=== PATIENT | male | born 1985 | race Caucasian/White ===

== ENCOUNTER 2016-08-15 19:58 | Emergency (ER) | payer MEDICAID, OTHER ==
--- NOTE | 2016-08-15 20:18 | EDPHY ---
H & P Stated Complaint: ps, opiate/benzo abuse HPI/ROS: CHIEF COMPLAINT: Auditory hallucination, drug abuse HISTORY OF PRESENT ILLNESS: The patient is a 30 y/o male arriving with his friend complaining of auditory hallucinations of unclear onset. He states, "highs and lows and voices I've been hearing" and says this is a "psychosis I' ve never endured;" "I just think everybody's talking about me and out to get me. " He has a history of anxiety, depression, and IV drug abuse and reports he last used heroin and methamphetamine today. He also goes to a methadone clinic and has prescriptions for Klonopin, Ativan, and Adderall that he has already used up for the month. He reports he's been here before for hallucinations. He denies cough or cold, but "gets fevers sometimes with the abscesses." He came in today voluntarily due to "overwhelming stress" and wants to seek treatment for opiate abuse. REVIEW OF SYSTEMS: A ten point review of systems was performed and is negative with the exception of the items mentioned in the HPI. Source: Patient - Personal History Current Tetanus/Diphtheria Vaccine: Unsure Current Tetanus Diphtheria and Acellular Pertussis (TDAP): Unsure - Medical/Surgical History PMH: PMH includes: 1. Anxiety 2. Depression 3. Polysubstance abuse including opiates, benzodiazepines, and methamphetamine. Currently uses methadone as well. Reviewed prior medical records including multiple admissions for detox and behavioral health admission 12/14/11. Hx Asthma: No Hx Chronic Respiratory Disease: No Hx Diabetes: No Hx Cardiac Disease: No Hx Renal Disease: No Hx Cirrhosis: No Hx Alcoholism: No Other PMH: Polysubstance abuse. Anxiety. Shoulder surgery - Social History Smoking Status: Never smoked Alcohol Use: Occasionally Drug Use: Heroin Additional Social History: Not employed, no cigarette use, polysubstance and IV drug abuse. Friend at bedside. PCP in [place] - Physical Exam Exam: General Appearance: Alert. Vital signs reviewed and normal. Eyes: Pupils equal and round, no conjunctival injection, no discharge. Anicteric. ENT, Mouth: Mucous membranes are moist, no oropharyngeal erythema or edema. Poor dentition. Neck: No lymphadenopathy, supple. Respiratory: Lungs are clear to auscultation; no wheezes, rales, or rhonchi. Cardiovascular: Regular rate and rhythm; no murmur, rub, or gallop. Gastrointestinal: Abdomen is soft and nontender, no masses or organomegaly, bowel sounds normal. Skin: Warm and dry. Multiple bruises and track reyes on both arms. No palpable fluctuance or abscesses. Back: Nontender to palpation over the thoracolumbar spine. No CVAT. Neurological: Alert and oriented. Moving all four extremities easily and equally. Psychiatric: Normal affect. Constitutional: Initial Vital Signs Temperature (C) 36.8 C 08/15/16 20:04 Heart Rate 83 08/15/16 20:04 Respiratory Rate 16 08/15/16 20:04 Blood Pressure 105/79 08/15/16 20:04 O2 Sat (%) 96 08/15/16 20:04 O2 Delivery Mode Room Air O2 (L/minute) 95 Allergies/Adverse Reactions: No Known Allergies Allergy (Unverified 08/15/16 20:03) Home Medications: Medication Instructions Recorded Ativan 08/15/16 Klonopin 08/15/16 Methadone HCl 08/15/16 Medical Decision Making ED Course/Re-evaluation: Patient arrives here voluntarily for substance abuse treatment. Standard psychiatric labs drawn. I suspect that his report of hearing voices is related to his substance abuse and not primary psychiatric problem. I have reviewed previous records that are available to me. He has been admitted to this hospital 4 times for treatment of opiate dependence. He is currently enrolled in a methadone program in [place], but is not compliant and continues with IVDA. He has tried suboxone in the past. He requests help with detox, but because he is addicted to both opiates and benzodiazepines, local options are limited. He is not able to detox at the [facility]. He was observed in the ED for five hours. Labs not concerning. UDS positive only for benzos (he reports meth and heroin use today). I have spoken with mental health supervisor aircraft cleaning, psychiatrist power generation plant operator, hospitalist on duty and am unable to arrange inpatient detox for him. He lives in [place] and the friend that accompanied him has returned to [place] on the bus. When I informed the patient that I am unable to arrange inpatient detox he was resigned and cooperative. He states that he will take a bus back to [place] and present to [facility] where some help is likely available. He is clearly aware of the services available to him in [place]. He is not suicidal or homicidal. At the time of his discharge he is no longer reported auditory hallucinations. I do not think that he needs psychiatric evaluation. No signs of active withdrawal. No evidence of abscess at injection sites. Although I had hoped to be able to provide some form of assistance to him for help with his obviously serious addiction, I have been unable to do so. Differential Diagnosis: I considered a ddx of polysubstance abuse with resultant psychosis, depression, anxiety, psychosis, nayely, suicidality, homicidality, and seeking secondary gain (place to sleep). - Data Points Laboratory Results: Laboratory Results 08/15/16 21:15 08/15/16 21:45 Departure - Departure Disposition: Home, Routine, Self-Care Clinical Impression: Polysubstance abuse Condition: Good Instructions: Polysubstance Abuse (ED) Additional Instructions: As you know, we do not have the capability of helping you with your withdrawal. I recommend that you return to [place] and get in touch with [facility]. Referrals: [facility] [Outside] - As per Instructions Report Scribed for: Stephanie Aquino Report Scribed by: Ana Bennett Date of Report: 08/15/16 Time of Report: 20:32 Physician Review and Approval Statement: 08/15/16 20:18 Portions of this note were transcribed by the medical appointment scheduler. I, Dr. Stephanie Aquino, personally performed the history, physical exam, and medical decision- making; and confirmed the accuracy of the information in the transcribed note.
[2016-08-15 21:45] LABS: % IMMATURE GRANULYOCYTES 0.2 % (0.0-1.1); ABSOLUTE IMMATURE GRANULOCYTES 0.02 10^3/uL (0.00-0.10); ADD DIFF? NO; ADD MORPH? NO; ADD SCAN? NO; ATYPICAL LYMPHOCYTE FLAG 0 (0-99); FRAGMENT RBC FLAG 0 (0-99); HEMATOCRIT 52.4 % (40.0-51.0); HEMOGLOBIN 16.9 g/dL (13.7-17.5); LEFT SHIFT FLG 0 (0-99); LIPEMIA HEMOLYSIS FLAG 80 (0-99); MEAN CELL HEMOGLOBIN 27.4 pg (27.9-34.1); MEAN CELL HEMOGLOBIN CONCENTR. 32.3 g/dL (32.4-36.7); MEAN CELL VOLUME 85.1 fL (81.5-99.8); MEAN PLATELET VOLUME 11.7 fL (8.7-11.7); PLATELET CLUMPS FLAG 80 (0-99); PLATELET COUNT 178 10^3/uL (150-400); RED BLOOD CELL COUNT 6.16 10^6/uL (4.40-6.38); RED CELL DISTRIBUTION WIDTH 12.8 % (11.5-15.2)
[2016-08-15 22:15] LABS: ANION GAP 13 mEq/L (8-16); CALCIUM 10.3 mg/dL (8.5-10.4); CARBON DIOXIDE 30 mEq/l (22-31); CHLORIDE 100 mEq/L (97-110); CREATININE 0.9 mg/dL (0.7-1.3); ETHANOL SERUM < 10 mg/dL (0-10); GLOMERULAR FILTRATION RATE > 60; GLUCOSE 93 mg/dL (70-100); POTASSIUM 4.2 mEq/L (3.5-5.2); SODIUM 143 mEq/L (134-144)
[2016-08-16 00:11] VITALS: TEMP 97.9
[2016-08-16 00:59] VITALS: BP 107/64; PULSE 80; RESP 18; O2SAT 99
== END 2016-08-16 01:02 | disposition home or self-care (01) ==
DX: F19.10 Other psychoactive substance abuse, uncomplicated (principal)
CPT/HCPCS: 80305; G0480